=== PATIENT | female | born 1980 | race Caucasian/White ===

== ENCOUNTER → 2018-08-15 | Outpatient (REF) | payer OTHER ==
[2018-08-15 16:45] LABS: FERRITIN 32 NG/ML (8-252); IRON (FE) 44 UG/DL (50-170); PERCENT SATURATION 13.6 % (13.2-45.0); TOTAL IRON BINDING CAPACITY 323 UG/DL (250-450)
== END ==
LOC: M LAB REF 15:35
DX: L65.9 Nonscarring hair loss, unspecified (principal)
CPT/HCPCS: 83550

== ENCOUNTER → 2018-12-26 | Outpatient (REF) | payer OTHER ==
[2018-12-26 19:00] LABS: PERCENT SATURATION 16.1 % (13.2-45.0)
== END ==
LOC: M LAB REF 16:48
PROVIDERS: ATTEND Internal Medicine
DX: D50.9 Iron deficiency anemia, unspecified (principal)

== ENCOUNTER 2019-03-19 17:38 | Emergency (ER) | payer BC, OTHER ==
[~2019-03-19] VITALS: Ht 165.1 cm; Wt 122.7 kg
[2019-03-19] MEDS ORDERED: pro air inhaler (17:54)
[2019-03-19] MEDS ORDERED: SERT-155 (17:54)
[2019-03-19] MEDS ORDERED: MONT10TA2 (17:54)
[2019-03-19] MEDS ORDERED: TOPI100T9 (17:54)
[2019-03-19] MEDS ORDERED: FERR32TA (17:54)
[2019-03-19] MEDS ORDERED: CLAR10CA3 PO (17:54)
[2019-03-19] MEDS ORDERED: METO1TAB33 (17:54)
[2019-03-19 18:15] LABS: HEMATOCRIT 35.5 % (36.0-47.0); HEMOGLOBIN 11.8 g/dl (12.0-15.5); MEAN CORPUSCULAR HEMOGLOBIN 29.1 pg (27.0-33.0); MEAN CORPUSCULAR HGB CONC 33.2 g/dl (32.0-36.5); MEAN CORPUSCULAR VOLUME 87.7 fl (80.0-96.0); PLATELET COUNT, AUTOMATED 194 10^3/uL (150-450); RED BLOOD COUNT 4.05 10^6/uL (4.00-5.40); WHITE BLOOD COUNT 6.1 10^3/uL (4.0-10.0)
[2019-03-19 18:41] LABS: BLOOD UREA NITROGEN 11 MG/DL (7-18); CALCIUM LEVEL 8.6 MG/DL (8.5-10.1); CARBON DIOXIDE LEVEL 24 MEQ/L (21-32); CHLORIDE LEVEL 110 MEQ/L (98-107); CK-MB VALUE MASS < 1.0 NG/ML (<3.6); CPK CREATINE PHOSPHOKINASE 45 U/L (26-192); CREATININE FOR GFR 0.74 MG/DL (0.55-1.30); GLOMERULAR FILTRATION RATE > 60.0 (>60); GLUCOSE, FASTING 99 MG/DL (70-100); MB/CK RELATIVE INDEX 2.22 (< OR =4); SODIUM LEVEL 140 MEQ/L (136-145); TROPONIN I < 0.02 NG/ML (< 0.10)
[2019-03-19 18:42] LABS: ATYPICAL LYMPH 11 % (0-5); EOSINOPHILS 5 % (0-5); LYMPHOCYTES 53 % (16-52); MONOCYTES 2 % (0-8); NEUTROPHILS 29 % (35-75); PLATELET ESTIMATE NORMAL (NORMAL)
[2019-03-19] MEDS ORDERED: GI COCKTAIL 50ML BTL(HYOSCYAMINE/MAALOX/LIDOCAINE VISCOUS)(1:3:1) PO ONE (20:45)
[2019-03-19] MEDS ORDERED: SUCRALFATE SUSP 1GM/10ML UD PO ONE (20:45)
[2019-03-19] MEDS ORDERED: PANTOPRAZOLE 40MG INJ (PROTONIX) (C9113) IV ONE (20:45)
[2019-03-19 21:00] LABS: HCG, SERUM QUALITATIVE NEGATIVE (NEGATIVE)
[2019-03-19] MEDS ORDERED: ISOVUE-370 76% 100ML VIAL (Q9967) As Ordered ONE (21:53)
--- NOTE | 2019-03-19 22:56 | REP ---
Clinical: Acute chest pain. Technique: Axial contrast enhanced images from the thoracic inlet to the upper abdomen using 100 ml Isovue 370 intravenous contrast material with coronal and sagittal re-formations. Findings: Satisfactory enhancement of the pulmonary vasculature is achieved and no filling defects are identified to suggest pulmonary embolus. Thoracic aorta is normal caliber without aneurysm or dissection. Heart and pericardium are normal. Mild bibasilar atelectasis and dependent changes noted without further consolidation, effusion, or pneumothorax. Tracheobronchial tree is patent. No adenopathy. Skeletal structures are intact. Limited upper abdomen suggests splenomegaly. Impression: No evidence for pulmonary embolus. Mild bibasilar atelectasis/dependent changes. Limited upper abdomen suggests splenomegaly. Electronically Signed by Garrett Stoll MD 03/19/2019 10:47 P
[2019-03-19 23:30] VITALS: BP 106/56
[2019-03-19] MEDS ORDERED: CARA1TAB6 PO (23:47)
[2019-03-19] MEDS ORDERED: PROT1TAB2 PO (23:47)
--- NOTE | 2019-03-20 06:05 | ECGEPIP ---
[facility] - ED Test Date: 2019-03-19 Pat Name: DAVID REED Department: Room: - Gender: Female Clothing Manager: nathaniel : 1980 Requested By: SHAWN GAMBLE Order Number: [id number] Reading MD: Robin Mock Measurements Intervals [place] Rate: 76 P: 57 DE: 196 QRS: 35 QRSD: 86 T: 31 QT: 349 QTc: 393 Interpretive Statements SINUS RHYTHM POSSIBLE PRIOR INFERIOR INFARCT BENIGN EARLY REPOLARIZATION NO PRIORS FOR COMPARISON Electronically Signed on 03-20-2019 6:05:35 EDT by Robin Mock
== END 2019-03-20 00:06 | disposition home or self-care (01) ==
LOC: M ED 17:38
DX: K21.9 Gastro-esophageal reflux disease without esophagitis (principal); R11.0 Nausea; I10 Essential (primary) hypertension; J45.909 Unspecified asthma, uncomplicated; F41.9 Anxiety disorder, unspecified; F32.9 Major depressive disorder, single episode, unspecified; Z88.1 Allergy status to other antibiotic agents; Z79.899 Other long term (current) drug therapy
CPT/HCPCS: 71275; 80048; 82550; 82553; 84484; 84703; 85025; 93005; 96374; 99285; C9113; Q9967

== ENCOUNTER → 2019-03-27 | Outpatient (REF) | payer OTHER ==
[~2019-03-27] MED LIST: CARA1TAB6 PO; CLAR10CA3 PO; FERR32TA; METO1TAB33; MONT10TA2; PROT1TAB2 PO; SERT-155; TOPI100T9; pro air inhaler
[2019-03-27 18:43] LABS: MONO SCRN NEGATIVE (NEGATIVE)
[2019-03-28 10:05] LABS: H PYLORI QUALITATIVE IgG NEGATIVE (NEGATIVE)
[2019-03-30 14:13] LABS: ATYPICAL LYMPH 10 % (0-5); EOSINOPHILS 2 % (0-5); LYMPHOCYTES 59 % (16-52); MONOCYTES 2 % (0-8); NEUTROPHILS 24 % (35-75); PLATELET ESTIMATE NORMAL (NORMAL)
[2019-03-30 14:14] LABS: POLYCHROMASIA 1+
== END ==
LOC: M LAB REF 16:57
PROVIDERS: ATTEND Internal Medicine
DX: R10.11 Right upper quadrant pain (principal)

== ENCOUNTER → 2019-07-07 | Outpatient (REF) | payer OTHER ==
[2019-07-07 12:51] LABS: PERCENT SATURATION 14.7 % (13.2-45.0)
== END ==
LOC: M LAB REF 12:09
PROVIDERS: ATTEND Internal Medicine
DX: D50.9 Iron deficiency anemia, unspecified (principal)

== ENCOUNTER → 2020-06-02 | Outpatient (REF) | payer OTHER ==
[~2020-06-02] MED LIST changes: -MONT10TA2; +MONT10TA4; -SERT-155; +SERT50TA29
[2020-07-18 11:38] LABS: PERCENT SATURATION 16.9 % (13.2-45.0)
== END ==
LOC: M LAB REF 12:42
PROVIDERS: ATTEND Internal Medicine
DX: D50.9 Iron deficiency anemia, unspecified (principal)

== ENCOUNTER → 2020-12-05 | Outpatient (REF) | payer OTHER ==
[~2020-12-05] MED LIST changes: +MONT10TA10; -MONT10TA4
[2020-12-05 13:18] LABS: PERCENT SATURATION 12.5 % (13.2-45.0)
== END ==
LOC: M LAB REF 11:49
PROVIDERS: ATTEND Internal Medicine
DX: D50.9 Iron deficiency anemia, unspecified (principal)

== ENCOUNTER → 2021-05-11 | Outpatient (REF) | payer OTHER, BC | LOC: M SFHCWAGY 13:13 | PROVIDERS: ATTEND Nurse Practitioner Women's Health | DX: Z12.4 Encounter for screening for malignant neoplasm of cervix (principal) ==

== ENCOUNTER → 2021-06-06 | Outpatient (CLI) | payer BC ==
--- NOTE | 2021-06-07 09:54 | REP ---
INDICATION: PJ SCR MAMMO/Z12.31. COMPARISON: None TECHNIQUE: Digital screening mammography was carried out bilaterally in the CC and MLO projections in 2D and 3D modalities. Today's examination is initial screening examination. By history, the patient has no complaints of a palpable breast abnormality or other significant breast complaints. FINDINGS: The breasts are symmetric in size and shape. Dense heterogenous fibroglandular elements are seen bilaterally in a stable appearing pattern. In the inferior medial posterior retroglandular adipose tissue of the right breast there is a smoothly marginated round 1.2 cm size nodule which has 100% distinct margins on the CC view but is minimally imaged due to its posterior position on the MLO anterior compression view. DBT imaging shows this to be at the level of the radiographic plate. No other suspicious features are seen in either breast. A small nodular densities seen in the upper aspect of the left breast on the MLO view. This has a notched lucent center and is a benign lymph node. The Volpara volumetric breast density pattern is b. IMPRESSION: BIRADS/ACR category 0 mammogram. Right breast nodular density as described above likely a dermal nodule due to its position for which diagnostic digital DBT spot compression views are recommended in the CC and MLO projections and or true lateral projection along with ultrasonography This patient's Tyrer-Cuzick lifetime breast cancer risk assessment score is 14.6%. This mammogram was interpreted with the aid of an FDA-approved computer-aided detection system. The patient states she had a clinical breast exam in April 2021. The patient letter being requested is M0. RECOMMENDATION: As above <Electronically signed by Amadeo Pyle > 06/07/21 0992
== END ==
LOC: M WHC 15:19
PROVIDERS: ATTEND Nurse Practitioner Women's Health
DX: Z12.31 Encounter for screening mammogram for malignant neoplasm of breast (principal)

== ENCOUNTER → 2021-06-20 | Outpatient (CLI) | payer BC ==
--- NOTE | 2021-06-20 11:24 | REP ---
INDICATION: DIAG R MAMMO/NODULAR DENSITY. COMPARISON: Baseline screening mammography 06 June 2021 showed a superficial nodule inferiorly and medially. Diagnostic imaging was recommended. TECHNIQUE: Magnified focal spot-compression CC, mL, and MLO views are obtained. 3D tomography is deployed in the mediolateral projection. Targeted right breast ultrasound is carried out. This mammogram was interpreted with the aid of an FDA-approved computer-aided detection system. FINDINGS: Scattered fibroglandular elements are noted. The nodular opacity seen on the screening study is confirmed in the inferior mammary fold region medially in the right breast. This has well-circumscribed margins and measures 10 mm in greatest diameter. Patient relates that this corresponds to a palpable mass which she has had "for years". No other suspicious mammographic finding. The Volpara volumetric breast density pattern is b. Targeted ultrasound: Targeted right breast sonography is performed the site of the palpable lump corresponding to the mammographic density. In the 4 o'clock position, sonography demonstrates a 1.1 x 0.9 x 0.8 cm superficial subdermal hypoechoic lesion just beneath the skin. It is located 12 cm from the nipple. It has a low shear wave elastography number, 6.48 KPA. There is no visible internal Doppler flow. It has well-defined back wall. Smooth margins. IMPRESSION: BIRADS/ACR category 3 probably benign right breast mammographic and sonographic findings. Findings most compatible with sebaceous cyst inferiorly and medially. This patient's Tyrer-Cuzick lifetime breast cancer risk assessment score is 14.6%. RECOMMENDATION: Repeat right breast mammography and sonography recommended in 6 months. The patient letter being requested is M 3. <Electronically signed by Steve Valle > 06/20/21 [id number]
== END ==
LOC: M WHC 09:05
PROVIDERS: ATTEND Nurse Practitioner Women's Health
DX: Z12.31 Encounter for screening mammogram for malignant neoplasm of breast (principal)

== ENCOUNTER → 2021-07-04 | Outpatient (REF) | payer BC ==
[2021-07-04 18:57] LABS: PERCENT SATURATION 18.6 % (13.2-45.0)
== END ==
LOC: M LAB REF 17:54
PROVIDERS: ATTEND Internal Medicine
DX: D64.9 Anemia, unspecified (principal)

== ENCOUNTER → 2021-10-31 | Outpatient (CLI) | payer BC, OTHER ==
[~2021-10-31] MED LIST changes: -MONT10TA10; +MONT10TA97
[2021-10-31 13:30] LABS: HEMATOCRIT 39.5 % (36.0-47.0); HEMOGLOBIN 12.8 g/dl (12.0-15.5); MEAN CORPUSCULAR HEMOGLOBIN 28.2 pg (27.0-33.0); MEAN CORPUSCULAR HGB CONC 32.4 g/dl (32.0-36.5); PLATELET COUNT, AUTOMATED 387 10^3/uL (150-450); RED BLOOD COUNT 4.54 10^6/uL (4.00-5.40)
[2021-10-31 13:58] LABS: PERCENT SATURATION 14.1 % (13.2-45.0)
== END ==
LOC: M PLALAB 11:58
PROVIDERS: ATTEND Specialist
DX: N92.0 Excessive and frequent menstruation with regular cycle (principal)

== ENCOUNTER → 2021-11-02 | Outpatient (CLI) | payer BC | LOC: M WHC 10:29 | PROVIDERS: ATTEND Specialist | DX: N92.0 Excessive and frequent menstruation with regular cycle (principal) ==

== ENCOUNTER → 2021-12-22 | Outpatient (CLI) | payer BC, OTHER | LOC: M WHC 09:27 | PROVIDERS: ATTEND Advanced Practice Midwife | DX: R92.8 Other abnormal and inconclusive findings on diagnostic imaging of breast (principal) ==

== ENCOUNTER → 2022-01-13 | Outpatient (CLI) | payer BC ==
[~2022-01-13] MED LIST changes: +AZEL0.055 NARES
== END ==
LOC: M LABSMTC 10:42
PROVIDERS: ATTEND Anesthesiology
DX: Z01.812 Encounter for preprocedural laboratory examination (principal); Z20.822 Contact with and (suspected) exposure to COVID-19

== ENCOUNTER 2022-01-18 10:00 | Day surgery (SDC) | payer BC, OTHER ==
[~2022-01-18] VITALS: Ht 165.1 cm; Wt 134.2 kg
[~2022-01-18 10:00] MED LIST changes: +LR 1,000 ML IV ONE
[2022-01-18] MEDS ORDERED: PROBCAP14 PO (10:23)
[2022-01-18] MEDS ORDERED: LIDOCAINE 2% 100MG/5ML SDV (FOR ANES.) As Ordered ONE (10:31)
[2022-01-18] MEDS ORDERED: fentaNYL 100 MCG/2 ML INJECTION As Ordered ONE (10:31)
[2022-01-18] MEDS ORDERED: MIDAZOLAM INJ 2MG/2ML VIAL (J2250 PER 1MG) As Ordered ONE (10:31)
[2022-01-18] MEDS ORDERED: KETOROLAC 60MG 2ML VIAL As Ordered ONE (10:31)
[2022-01-18] MEDS ORDERED: propofoL 200 MG/20 ML VIAL As Ordered ONE (10:31)
[2022-01-18 10:35] LABS: HEMATOCRIT 39.1 % (36.0-47.0); HEMOGLOBIN 13.1 g/dl (12.0-15.5); MEAN CORPUSCULAR HEMOGLOBIN 28.7 pg (27.0-33.0); MEAN CORPUSCULAR HGB CONC 33.5 g/dl (32.0-36.5); MEAN CORPUSCULAR VOLUME 85.6 fl (80.0-96.0); PLATELET COUNT, AUTOMATED 338 10^3/uL (150-450); RED BLOOD COUNT 4.57 10^6/uL (4.00-5.40); WHITE BLOOD COUNT 7.2 10^3/uL (4.0-10.0)
[2022-01-18] MEDS ORDERED: dexameTHASONE 4 MG/ML 1ML VIAL (J1100 PER 1MG) As Ordered ONE (11:08)
[2022-01-18] MEDS ORDERED: ONDANSETRON 4MG/2ML VIAL As Ordered ONE (11:08)
[2022-01-18] MEDS ORDERED: METOCLOPRAMIDE INJ 10MG/2ML VIAL (J2765 PER 1) As Ordered ONE (11:08)
[2022-01-18] MEDS ORDERED: ONDANSETRON 4MG/2ML VIAL IV PRN (12:25)
[2022-01-18] MEDS ORDERED: LR 1,000 ML IV SCH ×2 (12:25)
[2022-01-18] MEDS ORDERED: oxyCODONE 5MG TAB PO PRN (12:25)
[2022-01-18] MEDS ORDERED: fentaNYL 100 MCG/2 ML INJECTION IV PRN (12:25)
[2022-01-18] MEDS ORDERED: PERCOCET 5MG/325MG TAB PO PRN (12:25)
[2022-01-18 13:06] VITALS: BP 126/73
== END 2022-01-18 13:55 | disposition home or self-care (01) ==
LOC: M SDC 10:00
PROVIDERS: ATTEND Specialist
DX: N85.8 Other specified noninflammatory disorders of uterus (principal); I10 Essential (primary) hypertension; K21.9 Gastro-esophageal reflux disease without esophagitis; D64.9 Anemia, unspecified; F41.9 Anxiety disorder, unspecified; F32.A Depression, unspecified; G43.909 Migraine, unspecified, not intractable, without status migrainosus; J45.909 Unspecified asthma, uncomplicated; E66.9 Obesity, unspecified; Z87.891 Personal history of nicotine dependence; Z88.1 Allergy status to other antibiotic agents; Z79.899 Other long term (current) drug therapy
CPT/HCPCS: 36415; 58563; 85027; 88305; J1100; J1885; J2250; J2405; J2765; J3010

== ENCOUNTER → 2022-02-16 | Outpatient (REF) | payer BC ==
[~2022-02-16] MED LIST changes: -LR 1,000 ML IV ONE; +PROBCAP14 PO
[2022-02-16 18:13] LABS: PERCENT SATURATION 16.4 % (13.2-45.0)
== END ==
LOC: M LAB REF 17:04
PROVIDERS: ATTEND Internal Medicine
DX: D50.9 Iron deficiency anemia, unspecified (principal)

== ENCOUNTER → 2022-03-31 | Outpatient (CLI) | payer BC, OTHER ==
[2022-03-31 12:40] LABS: HEMOGLOBIN A1c 5.7 %
[2022-03-31 12:57] LABS: FREE THYROXINE INDEX 2.2 % (1.3-4.8); THYROID STIMULATING HORMONE 1.55 uIU/ML (0.358-3.740); THYROXINE (T4) 6.5 UG/DL (4.5-12.0)
== END ==
LOC: M LAB 11:38
PROVIDERS: ATTEND Nurse Practitioner Family
DX: L68.0 Hirsutism (principal)

== ENCOUNTER → 2022-08-20 | Outpatient (CLI) | payer BC, OTHER ==
[2022-08-20 17:08] LABS: PERCENT SATURATION 16.3 % (13.2-45.0)
== END ==
LOC: M WUC 13:00
PROVIDERS: ATTEND Internal Medicine
DX: D50.9 Iron deficiency anemia, unspecified (principal)

== ENCOUNTER → 2022-08-27 | Outpatient (CLI) | payer BC, OTHER | LOC: M WHC 11:17 | PROVIDERS: ATTEND Internal Medicine | DX: E28.2 Polycystic ovarian syndrome (principal) ==

== ENCOUNTER → 2022-09-24 | Outpatient (CLI) | payer BC, OTHER ==
[~2022-09-24] MED LIST changes: +ALBU8.5H INH; -FERR32TA; +FERR32TA PO; +GABA-1171 PO; +GABA-282 PO; -METO1TAB33; +METO1TAB33 PO; -MONT10TA97; +MONT10TA97 PO; +SERT-141 PO; +SERT25TA21 PO; -TOPI100T9; +TOPI100T9 PO
== END ==
LOC: M LABSMTC 09:18
PROVIDERS: ATTEND Anesthesiology
DX: Z01.818 Encounter for other preprocedural examination (principal); Z11.52 Encounter for screening for COVID-19

== ENCOUNTER 2022-09-27 12:03 | Day surgery (SDC) | payer BC, OTHER ==
[~2022-09-27] VITALS: Ht 165.1 cm; Wt 133.4 kg
[2022-09-27] MEDS ORDERED: LR 1,000 ML IV SCH ×2 (12:30→15:45)
[2022-09-27 12:53] LABS: HEMATOCRIT 41.9 % (36.0-47.0); HEMOGLOBIN 13.3 g/dl (12.0-15.5); MEAN CORPUSCULAR HEMOGLOBIN 28.6 pg (27.0-33.0); MEAN CORPUSCULAR HGB CONC 31.7 g/dl (32.0-36.5); MEAN CORPUSCULAR VOLUME 90.1 fl (80.0-96.0); PLATELET COUNT, AUTOMATED 358 10^3/uL (150-450); RED BLOOD COUNT 4.65 10^6/uL (4.00-5.40); WHITE BLOOD COUNT 9.7 10^3/uL (4.0-10.0)
[2022-09-27] MEDS ORDERED: fentaNYL 100 MCG/2 ML INJECTION As Ordered ONE (13:19)
[2022-09-27] MEDS ORDERED: LIDOCAINE 2% 100MG/5ML SDV (FOR ANES.) As Ordered ONE (13:20)
[2022-09-27] MEDS ORDERED: MIDAZOLAM INJ 2MG/2ML VIAL (J2250 PER 1MG) As Ordered ONE (13:20)
[2022-09-27] MEDS ORDERED: propofoL 200 MG/20 ML VIAL As Ordered ONE (13:20)
[2022-09-27] MEDS ORDERED: ONDANSETRON 4MG 2ML VIAL As Ordered ONE (13:20)
[2022-09-27] MEDS ORDERED: ROCURONIUM BROMIDE 50 MG/5 ML VIAL As Ordered ONE (13:34)
[2022-09-27] MEDS ORDERED: ACETAMINOPHEN 1000MG 100ML IV BAG As Ordered ONE (13:48)
[2022-09-27] MEDS ORDERED: BUPIVACAINE HCL 0.25% 30ML VIAL As Ordered ONE (13:50)
[2022-09-27] MEDS ORDERED: SUGAMMADEX SODIUM 500 MG/5 ML VIAL (BRIDION) As Ordered ONE (13:56)
[2022-09-27] MEDS ORDERED: ceFAZolin 2 GM/D5W 50 ML IV BAG As Ordered ONE (14:34)
[2022-09-27] MEDS ORDERED: KETOROLAC 60MG 2ML VIAL As Ordered ONE (14:46)
[2022-09-27] MEDS ORDERED: ePHEDrine SULFATE 25 MG/5 ML(5MG/ML) SYRINGE As Ordered ONE (14:47)
[2022-09-27] MEDS ORDERED: oxyCODONE 5MG TAB PO PRN (14:55)
[2022-09-27] MEDS ORDERED: fentaNYL 100 MCG/2 ML INJECTION IV PRN (14:55)
[2022-09-27] MEDS ORDERED: ONDANSETRON 4MG 2ML VIAL IV PRN (14:55)
[2022-09-27] MEDS ORDERED: PERCOCET 5MG/325MG TAB PO PRN (15:45)
[2022-09-27] MEDS ORDERED: OXYC1TAB23 PO (16:47)
[2022-09-27] MEDS ORDERED: MACR100C43 PO (16:49)
[2022-09-27 17:20] VITALS: BP 129/75
== END 2022-09-27 17:30 | disposition home or self-care (01) ==
LOC: M SDC 12:03
PROVIDERS: ATTEND Specialist
DX: D36.7 Benign neoplasm of other specified sites (principal); I10 Essential (primary) hypertension; F41.9 Anxiety disorder, unspecified; K21.9 Gastro-esophageal reflux disease without esophagitis; G43.909 Migraine, unspecified, not intractable, without status migrainosus; Z79.899 Other long term (current) drug therapy; Z88.1 Allergy status to other antibiotic agents
CPT/HCPCS: 36415; 52000; 57135; 81025; 85027; 88307; J0131; J0690; J1100; J1885; J2250; J2405; J3010

== ENCOUNTER → 2022-12-31 | Outpatient (CLI) | payer BC, OTHER ==
[~2022-12-31] MED LIST changes: +MACR100C43 PO; +OXYC1TAB23 PO
== END ==
LOC: M WHC 15:37
PROVIDERS: ATTEND Specialist
DX: Z12.31 Encounter for screening mammogram for malignant neoplasm of breast (principal)

== ENCOUNTER → 2023-04-30 | Outpatient (REF) | payer OTHER, BC ==
[2023-04-30 19:03] LABS: PERCENT SATURATION 13.1 % (13.2-45.0)
[2023-04-30 19:05] LABS: FERRITIN 132.8 NG/ML (7.3-270.7)
== END ==
LOC: M LAB REF 16:33
PROVIDERS: ATTEND Internal Medicine
DX: D50.9 Iron deficiency anemia, unspecified (principal)

== ENCOUNTER → 2023-09-05 | Day surgery (SDC) | payer BC, OTHER ==
[~2023-09-05] VITALS: Ht 165.1 cm; Wt 125.1 kg
[~2023-09-05] MED LIST changes: +ALLE180T33 PO; +LIDOCAINE 2% 100MG/5ML SDV (FOR ANES.) As Ordered ONE; +PHEN30CA21 PO; +fentaNYL 100 MCG/2 ML INJECTION As Ordered ONE; +propofoL 200 MG/20 ML VIAL As Ordered ONE
[2023-09-05] MEDS: NS 1,000 ML IV ONE (11:42)
[2023-09-05 13:54] VITALS: TEMP 96.7
[2023-09-05 14:20] VITALS: BP 129/72; O2SAT 100
== END | disposition home or self-care (01) ==
LOC: M OPP 10:53
PROVIDERS: ATTEND Internal Medicine Gastroenterology
DX: D50.9 Iron deficiency anemia, unspecified (principal); K64.8 Other hemorrhoids; K31.A19 Gastric intestinal metaplasia without dysplasia, unspecified site; K29.70 Gastritis, unspecified, without bleeding; I10 Essential (primary) hypertension; K21.9 Gastro-esophageal reflux disease without esophagitis; F41.9 Anxiety disorder, unspecified; F32.A Depression, unspecified; G43.909 Migraine, unspecified, not intractable, without status migrainosus; J45.909 Unspecified asthma, uncomplicated; Z88.8 Allergy status to other drugs, medicaments and biological substances; Z79.899 Other long term (current) drug therapy; Z80.1 Family history of malignant neoplasm of trachea, bronchus and lung; Z80.3 Family history of malignant neoplasm of breast; Z80.6 Family history of leukemia
CPT/HCPCS: 43239; 45378; 88305; J3010

== ENCOUNTER → 2023-10-28 | Outpatient (CLI) | payer BC, OTHER ==
[~2023-10-28] MED LIST changes: -LIDOCAINE 2% 100MG/5ML SDV (FOR ANES.) As Ordered ONE; -fentaNYL 100 MCG/2 ML INJECTION As Ordered ONE; -propofoL 200 MG/20 ML VIAL As Ordered ONE
[2023-10-28 08:54] LABS: BASO % 0.4 % (0.0-1.0); EOS # 0.2 10^3/uL (0.0-0.5); EOS % 1.7 % (0.0-3.0); HEMATOCRIT 40.3 % (36.0-47.0); HEMOGLOBIN 13.1 g/dl (12.0-15.5); LYMPH # 2.3 10^3/uL (1.5-5.0); LYMPH % 25.7 % (24.0-44.0); MEAN CORPUSCULAR HEMOGLOBIN 28.7 pg (27.0-33.0); MEAN CORPUSCULAR HGB CONC 32.5 g/dl (32.0-36.5); MEAN CORPUSCULAR VOLUME 88.2 fl (80.0-96.0); MONO # 0.6 10^3/uL (0.0-0.8); MONO % 6.3 % (2.0-8.0); NEUTROPHILS # 5.9 10^3/uL (1.5-8.5); NEUTROPHILS % 65.6 % (36.0-66.0); PLATELET COUNT, AUTOMATED 361 10^3/uL (150-450); RED BLOOD COUNT 4.57 10^6/uL (4.00-5.40)
[2023-10-28 09:26] LABS: FERRITIN 133.2 NG/ML (7.3-270.7)
== END ==
LOC: M LAB 08:25
PROVIDERS: ATTEND Internal Medicine Gastroenterology
DX: K59.00 Constipation, unspecified (principal)

== ENCOUNTER 2023-12-09 08:01 | Day surgery (SDC) | payer BC, OTHER ==
[~2023-12-09] VITALS: Ht 165.1 cm; Wt 128.2 kg
[2023-12-09] MEDS: NS 1,000 ML IV ONE (08:20)
[2023-12-09 09:40] VITALS: BP 125/69; O2SAT 100
== END 2023-12-09 09:40 | disposition home or self-care (01) ==
LOC: M OPP 08:01
PROVIDERS: ATTEND Internal Medicine Gastroenterology
DX: K63.5 Polyp of colon (principal); K64.8 Other hemorrhoids; K64.4 Residual hemorrhoidal skin tags; K59.00 Constipation, unspecified; D50.9 Iron deficiency anemia, unspecified; Z79.891 Long term (current) use of opiate analgesic; Z79.899 Other long term (current) drug therapy; Z88.8 Allergy status to other drugs, medicaments and biological substances

== ENCOUNTER → 2024-05-01 | Outpatient (REF) | payer OTHER ==
[~2024-05-01] MED LIST changes: -AZEL0.055 NARES; +AZEL1SPR4 NARES
[2024-05-01 14:31] LABS: PERCENT SATURATION 16.1 % (13.2-45.0)
[2024-05-01 14:34] LABS: FERRITIN 127.7 NG/ML (7.3-270.7)
== END ==
LOC: M LAB REF 12:34
PROVIDERS: ATTEND Internal Medicine
DX: D50.9 Iron deficiency anemia, unspecified (principal)

== ENCOUNTER → 2024-08-21 | Outpatient (REF) | payer OTHER ==
[~2024-08-21] MED LIST changes: +GABA-1172 PO; -GABA-282 PO
[2024-08-21 13:59] LABS: PERCENT SATURATION 21.2 % (13.2-45.0)
== END ==
LOC: M LAB REF 12:40
PROVIDERS: ATTEND Internal Medicine
DX: D50.9 Iron deficiency anemia, unspecified (principal)

== ENCOUNTER → 2024-10-07 | Outpatient (REF) | payer OTHER, BC | LOC: M SFHCWAGY 13:00 | PROVIDERS: ATTEND Specialist | DX: Z01.419 Encounter for gynecological examination (general) (routine) without abnormal findings (principal) ==

== ENCOUNTER → 2025-01-12 | Outpatient (CLI) | payer BC, OTHER, SELFPAY | LOC: M WHC 16:00 | PROVIDERS: ATTEND Specialist | DX: Z12.31 Encounter for screening mammogram for malignant neoplasm of breast (principal); R92.323 Mammographic fibroglandular density, bilateral breasts ==

== ENCOUNTER → 2025-01-28 | Outpatient (REF) | payer OTHER | LOC: M LAB REF 19:06 | PROVIDERS: ATTEND Student in an Organized Health Care Education/Training Program | DX: R30.0 Dysuria (principal) ==

== ENCOUNTER → 2025-02-10 | Outpatient (REF) | payer OTHER ==
[2025-02-10 15:15] LABS: PERCENT SATURATION 17.6 % (13.2-45.0)
[2025-02-10 15:17] LABS: FERRITIN 119.2 NG/ML (7.3-270.7)
== END ==
LOC: M LAB REF 12:22
PROVIDERS: ATTEND Internal Medicine
DX: D50.9 Iron deficiency anemia, unspecified (principal)

== ENCOUNTER → 2025-02-19 | Outpatient (CLI) | payer OTHER ==
[~2025-02-19] MED LIST changes: +TOPI-257 PO; -TOPI100T9 PO
== END ==
LOC: M WUC 14:51
PROVIDERS: ATTEND Nurse Practitioner Family
DX: R30.0 Dysuria (principal); R10.30 Lower abdominal pain, unspecified

== ENCOUNTER → 2025-04-29 | Outpatient (CLI) | payer OTHER | LOC: M WHC 11:37 | PROVIDERS: ATTEND Specialist | DX: N92.6 Irregular menstruation, unspecified (principal) ==